=== PATIENT | male | born 1945 | race Two or more races ===

== ENCOUNTER → 2019-07-08 11:12 | Outpatient (CLI) | payer OTHER | END | disposition home or self-care (01) | LOC: LAB 11:12 | DX: R97.20 Elevated prostate specific antigen [PSA] (principal) ==

== ENCOUNTER → 2019-07-23 14:11 | Outpatient (CLI) | payer OTHER | END | disposition home or self-care (01) | LOC: LAB 14:11 | DX: R31.0 Gross hematuria (principal) ==

== ENCOUNTER → 2019-07-26 | Outpatient (CLI) | payer OTHER | END | disposition home or self-care (01) | LOC: SONOGRAMA 07:38 | DX: R97.20 Elevated prostate specific antigen [PSA] (principal) ==

== ENCOUNTER 2019-09-19 11:22 | Outpatient (CLI) | payer OTHER | END 2019-09-19 12:55 | disposition home or self-care (01) | LOC: NUCLEAR 11:22 | DX: N40.1 Benign prostatic hyperplasia with lower urinary tract symptoms (principal); R31.21 Asymptomatic microscopic hematuria | CPT/HCPCS: 78803; A9503 ==

== ENCOUNTER 2019-09-19 12:14 | Outpatient (CLI) | payer OTHER | END 2019-09-19 12:18 | disposition home or self-care (01) | LOC: TOM 12:14 | DX: R31.21 Asymptomatic microscopic hematuria (principal); N40.1 Benign prostatic hyperplasia with lower urinary tract symptoms ==

== ENCOUNTER → 2020-02-10 07:41 | Outpatient (CLI) | payer OTHER | END | disposition home or self-care (01) | LOC: LAB 07:41 | PROVIDERS: ATTEND Urology | DX: C61 Malignant neoplasm of prostate (principal) ==